=== PATIENT | female | born 1940 | race Two or more races ===

== ENCOUNTER 2024-08-09 14:03 | Emergency (ER) | payer OTHER ==
[~2024-08-09] VITALS: Ht 160 cm; Wt 59.4 kg
[2024-08-09] MEDS ORDERED: METFORMIN HCL500 M3 PO (14:37)
[2024-08-09] MEDS ORDERED: ZESTRIL30 MG PO (14:37)
[2024-08-09] MEDS ORDERED: ROSUVASTATIN CA10 MG PO (14:38)
[2024-08-09] MEDS ORDERED: BARIUM SULFATE 450 ML ORAL.SUSP PO ONE (16:16)
[2024-08-09] MEDS ORDERED: DIATRIZOATE MEGLUMINE, SODIUM 30 ML BOTTLE ONE (16:24)
[2024-08-09 16:49] LABS: HEMATOCRIT 39.5 % (36.0-45.00); MEAN CELL VOLUME 87.4 fL (80.00-100.00); MEAN CORPUSCULAR HEMOGLOBIN 28.8 pg (27.00-32.0); MEAN CORPUSCULAR HGB CONC 32.9 g/dl (32.0-36.0); PLATELET COUNT 207 K/uL (150-450); RED BLOOD COUNT 4.52 M/uL (4.00-6.00)
[2024-08-09 17:13] LABS: PH,URINE 5.5 (5.0-8.0); URINE APPEARANCE Clear; URINE BILIRRUBIN Negative (NEGATIVE); URINE BLOOD Negative; URINE COLOR Yellow; URINE GLUCOSE Negative (NEGATIVE); URINE KETONE Negative (NEGATIVE); URINE LEUKOCYTE Trace; URINE NITRATE Negative; URINE PROTEIN Negative (NEGATIVE); URINE UROBILINOGEN 0.2 E.U./dl
[2024-08-09 17:16] LABS: URINE BACTERIA 15.9 uL (0.0-1933); URINE EPITHELIAL CELLS 6.4 uL (0.0-38.8); URINE RBC 11.4 uL (0.0-20.8); URINE WBC 3.1 uL (0.0-23.2)
[2024-08-09 17:19] LABS: ALBUMIN 4.1 gm/dL (3.4-5.0); BILIRUBIN TOTAL 0.55 mg/dL (0.3-1.2); CALCIUM 9.7 mg/dL (8.5-10.1); CREATININE SERUM 0.91 mg/dL (0.55-1.02); GFR 59.18; GLOBULINA 4.2 G/DL (2.4-3.5); POTASSIUM 3.93 mEq/L (3.5-5.1); TOTAL PROTEIN 8.3 gm/dL (6.4-8.2)
== END 2024-08-09 20:10 | disposition home or self-care (01) ==
LOC: ER 14:06
PROVIDERS: General Practice
DX: R53.81 Other malaise (principal); R10.9 Unspecified abdominal pain; I10 Essential (primary) hypertension; E11.9 Type 2 diabetes mellitus without complications; Z79.84 Long term (current) use of oral hypoglycemic drugs
CPT/HCPCS: 36415; 74177; 99284; Q9965